=== PATIENT | female | born 1995 | race Caucasian/White ===

== ENCOUNTER 2019-02-19 12:52 | Emergency (ER) | payer OTHER ==
[~2019-02-19] VITALS: Ht 154.9 cm; Wt 81.2 kg
[2019-02-19] MEDS ORDERED: ONDANSETRON HCL INJ 2MG/ML 2ML 2 MG/ML VIAL IV STA (13:22)
[2019-02-19] MEDS ORDERED: SODIUM CHLORIDE 0.9% 1000ML 1,000 ML IV STA (13:22)
[2019-02-19] MEDS ORDERED: MORPHINE SULFATE 2 MG/ML SYR 1ML IV NR (13:30)
[2019-02-19] MEDS ORDERED: MORPHINE SULFATE INJ 4 MG/ML INJ 1ML ONE (13:37)
[2019-02-19] MEDS ORDERED: ONDANSETRON HCL INJ 2MG/ML 2ML 2 MG/ML VIAL ONE (13:37)
[2019-02-19] MEDS ORDERED: SODIUM CHLORIDE 0.9% 1000ML 1,000 ML ONE (13:37)
--- NOTE | 2019-02-19 14:39 | Diagnostic Imaging Report ---
EXAMINATION: CT of the abdomen and pelvis without contrast. TECHNIQUE: Spiral CT images of the abdomen and pelvis were performed from the lung bases to the lesser trochanters. No intravenous contrast was given per renal stone protocol. Coronal and sagittal reformatted images were obtained. COMPARISON: None. CLINICAL HISTORY:Vomiting and abdominal pain DISCUSSION: ABSENCE OF INTRAVENOUS CONTRAST DECREASES SENSITIVITY FOR DETECTION OF FOCAL LESIONS AND VASCULAR PATHOLOGY. ABDOMEN/PELVIS: LOWER THORAX: Unremarkable. HEPATOBILIARY:No focal hepatic lesions. No biliary ductal dilation. The gallbladder is normal. SPLEEN: No splenomegaly. PANCREAS: No focal masses or ductal dilatation. ADRENALS: No adrenal nodules. KIDNEYS/URETERS: No hydronephrosis, stones, or solid mass lesions. PELVIC ORGANS/BLADDER: Urinary bladder is unremarkable. Uterus is neutral in position and appears normal. No adnexal mass. PERITONEUM/RETROPERITONEUM: Trace free pelvic fluid, likely physiologic. No pneumoperitoneum. LYMPH NODES: No intra-abdominal,retroperitoneal, pelvic or inguinal lymphadenopathy. VESSELS: Limited evaluation without intravenous contrast. The abdominal aorta is nonaneurysmal. GI TRACT: No distention or wall thickening. Normal appendix. BONES AND SOFT TISSUES: No bony destructive lesions. No soft tissue abnormalities. IMPRESSION: No acute intra-abdominal or pelvic CT abnormalities. Normal appendix. Signed by: Dr. Nilo Kennedy M.D. on 02/19/2019 2:36 PM
[2019-02-19] MEDS ORDERED: PROMETHAZINE 12.5MG/ NACL 0.9% 12.5 MG/50 ML BAG IV ONE (14:45)
[2019-02-19] MEDS ORDERED: PROMETHAZINE HCL (IM) 25 MG/ML VIAL ONE (14:48)
--- NOTE | 2019-02-19 14:52 | NUR ---
US AT BEDSIDE, PT VOICES NO COMPLAINTS AT THIS TIME
--- NOTE | 2019-02-19 15:33 | NUR ---
PT RESTING, VITAL SIGNS STABLE, FAMILY AT BEDSIDE, PT VOICES NO COMPLAINTS AT THIS TIME
--- NOTE | 2019-02-19 15:42 | Diagnostic Imaging Report ---
EXAMINATION: Abdominal ultrasound. CLINICAL INDICATION: Abdominal pain COMPARISON: Same day abdominal CT DISCUSSION: Transverse and longitudinal images of the upper abdomen were obtained. The liver is normal in size measuring 13.9 centimeters in length in the right midclavicular line and shows normal echogenicity. No focal masses are seen in the liver. There is no intrahepatic biliary dilatation. The common bile duct measures 0.3 cm. the main portal vein is normal in caliber and measures 0.7 cm with hepatopedal flow. The gallbladder is normal in appearance without stones, wall thickening or pericholecystic fluid. The sonographic Giraldo's sign is negative. The visualized portions of the pancreatic body and proximal tail are unremarkable. The right kidney measures 10.3 centimeters in length. There is normal renal cortical echogenicity and no hydronephrosis, solid mass or shadowing calculi. IVC is patent. Abdominal aorta is nonaneurysmal. No free fluid is seen. IMPRESSION: Unremarkable right upper quadrant ultrasound. Signed by: Dr. Nilo Kennedy M.D. on 02/19/2019 3:38 PM
[2019-02-19 15:56] VITALS: BP 116/69
== END 2019-02-19 16:00 | disposition home or self-care (01) ==
LOC: FSED 12:52
DX: R10.13 Epigastric pain (principal); R19.7 Diarrhea, unspecified; R11.2 Nausea with vomiting, unspecified
CPT/HCPCS: 74176; 76700; 80053; 81003; 81025; 85025; 99284; J2270; J2405; J2550; J7030